=== PATIENT | male | born 1955 | race Two or more races ===

== ENCOUNTER 2023-08-16 14:59 | Inpatient (IN) | payer OTHER ==
[~2023-08-16] VITALS: Ht 172.7 cm; Wt 80.0 kg
[2023-08-16] MEDS ORDERED: CEPH-558 PO (15:16)
[2023-08-16] MEDS ORDERED: METF-1211 PO (15:16)
[2023-08-16] MEDS ORDERED: NITR-80 PO (15:16)
[2023-08-16] MEDS ORDERED: ATOR10TA PO (15:16)
[2023-08-16] MEDS ORDERED: PANT-31 PO (15:16)
[2023-08-16 15:41] LABS: BASOPHILS % (AUTO) 0.6 % (0.0-2.0); EOSINOPHILS % (AUTO) 2.1 % (1.0-6.0); HEMOGLOBIN 9.4 g/dL (13.5-17.5); LYMPHOCYTES # (AUTO) 1.2 K/uL (1.0-4.8); LYMPHOCYTES % (AUTO) 13.1 % (22.0-44.0); MEAN CORPUSCULAR HEMOGLOBIN 27.6 pg (26.0-34.0); MEAN CORPUSCULAR HGB CONC 32.3 G/dL (31.0-37.0); MEAN CORPUSCULAR VOLUME 86 fL (80-100); MONOCYTES # (AUTO) 0.9 K/uL (0.1-1.0); NEUTROPHILS # (AUTO) 7.2 K/uL (1.8-7.7); NEUTROPHILS % (AUTO) 75.2 % (40.0-70.0); PLATELET COUNT (AUTO) 648 K/uL (150-450); RED CELL DISTRIBUTION WIDTH 15.3 % (11.5-14.5); WHITE BLOOD COUNT (AUTO) 9.5 K/uL (4.5-11.0)
[2023-08-16 15:52] LABS: ANION GAP 10 mmol/L (8-16); CALCIUM, TOTAL 9.4 mg/dL (8.8-10.5); CARBON DIOXIDE 28 mmol/L (22-29); CHLORIDE 105 mmol/L (98-107); CREATININE 0.91 mg/dL (0.60-1.30); GLOMERULAR FILTR. RATE CALC > 60 mL/min (>60); GLUCOSE,RANDOM 95 mg/dL (70-110); POTASSIUM 3.9 mmol/L (3.5-5.1); SODIUM SERUM 143 mmol/L (136-145); UREA NITROGEN, BLOOD 18 mg/dL (7-18)
[2023-08-16 15:54] LABS: ERYTHROCYTE SEDIMENTATION RATE 68 MM/HR (0-20)
[2023-08-16 15:58] LABS: TROPONIN I-HIGH SENSITIVITY 4 ng/L (<76)
[2023-08-16 15:59] LABS: LACTIC ACID 1.2 mmol/L (0.4-2.0)
[2023-08-16 16:05] LABS: ALANINE AMINOTRANSFERASE 137 U/L (12-78); ALBUMIN 2.2 g/dL (3.4-5.0); ALKALINE PHOSPHATASE 171 U/L (46-116); ASPARTATE AMINOTRANSFERASE 124 U/L (15-37); B-TYPE NATRIURETIC PEPTIDE 60 pg/mL (0-100); BILIRUBIN,TOTAL 0.4 mg/dL (0.1-1.0); CREATINE KINASE, TOTAL ONLY 24 U/L (39-308); LIPASE 41 U/L (16-77); TOTAL PROTEIN, SERUM 7.6 g/dL (6.4-8.2)
[2023-08-16 16:26] LABS: COVID AG,FIA SOURCE NASAL SWAB
[2023-08-16 16:44] LABS: SARS-COV2 (COVID) ANTIGEN,FIA Negative (Negative)
[2023-08-16] MEDS ORDERED: ZOLPIDEM TARTRATE 5 MG TABLET PO PRN (17:15)
[2023-08-16] MEDS ORDERED: DEXTROSE 50%-WATER 25 GM/50 ML SYRINGE IVP PRN ×2 (17:15)
[2023-08-16] MEDS ORDERED: INSULIN LISPRO 100 UNITS/ML SQ PRN (17:15)
[2023-08-16] MEDS ORDERED: OxyCODONE HCL/ACETAMINOPHEN 5-325 MG TABLET PO PRN ×2 (17:15)
[2023-08-16] MEDS ORDERED: VANCOMYCIN 1GM/WATER(PEG/NADA) 200 ML IV ONE (17:15)
[2023-08-16] MEDS ORDERED: ONDANSETRON HCL 4 MG/2 ML VIAL IVP PRN (17:15)
[2023-08-16] MEDS: CefTRIAXone 1 GM/DEXTROSE 50 ML IV SCH (17:20)
[2023-08-16] MEDS ORDERED: IOHEXOL 350 MG/ML 100 ML VIAL ONE (17:54)
[2023-08-16] MEDS ORDERED: SODIUM CHLORIDE 0.9% 100 ML ONE (17:54)
[2023-08-16 18:11] LABS: GLUCOMETER DEV NAME(LOC) ER.6; GLUCOSE,POINT OF CARE 95 MG/DL (70-110)
[2023-08-16 18:54] LABS: APPEARANCE,URINE CLEAR (CLEAR); BILIRUBIN,URINE NEGATIVE (NEGATIVE); COLOR,URINE YELLOW (YELLOW); GLUCOSE, URINE (UA) NEGATIVE (NEGATIVE); KETONES,URINE NEGATIVE (NEGATIVE); LEUKOCYTE ESTERASE ,URINE NEGATIVE (NEGATIVE); NITRATE,URINE NEGATIVE (NEGATIVE); OCCULT BLOOD,URINE LARGE (NEGATIVE); PH,URINE 5.5 (5.0-8.0); PH,URINE DRUG SCREEN 5.5 (5.0-8.0); PROTEIN,URINE TRACE mg/dL (NEGATIVE); SPECIFIC GRAVITIY, URINE 1.026 (1.003-1.030); UROBILINOGEN,URINE <=1.0 mg/dL (<=1.0)
[2023-08-16 19:01] LABS: ALCOHOL, URINE DRUG SCREEN NEGATIVE (NEGATIVE); AMPHET/METH SCREEN,URINE NEGATIVE (NEGATIVE); BARBITURATE SCREEN, URINE NEGATIVE (NEGATIVE); BENZODIAZEPINES SCREEN,URINE NEGATIVE (NEGATIVE); CANNABINOID SCREEN,URINE NEGATIVE (NEGATIVE); COCAINE SCREEN,URINE NEGATIVE (NEGATIVE); METHADONE SCREEN, URINE NEGATIVE (NEGATIVE); OPIATE SCREEN,URINE NEGATIVE (NEGATIVE); PHENCYCLIDINE SCREEN,URINE NEGATIVE (NEGATIVE)
[2023-08-16 19:24] LABS: BACTERIA,URINE Rare /HPF (None Seen); WBC,URINE None Seen /HPF (0-5)
[2023-08-16 19:25] LABS: SQUAMOUS EPITHELIAL CELL,UR Few /LPF (None Seen)
[2023-08-16 19:40] VITALS: BP 116/66; PULSE 69; RESP 18; TEMP 98.8
[2023-08-16] MEDS: DOCUSATE SODIUM 100 MG CAPSULE PO SCH (20:39)
[2023-08-16] MEDS: ENOXAPARIN SODIUM 80 MG/0.8 ML PF SYRINGE SQ SCH (20:39)
[2023-08-16 22:21] LABS: GLUCOMETER DEV NAME(LOC) 4E.2; GLUCOSE,POINT OF CARE 96 MG/DL (70-110)
[2023-08-17 04:10] VITALS: BP 104/66; PULSE 65; RESP 18; TEMP 98.4
[2023-08-17] MEDS ORDERED: MORPHINE SULFATE 2 MG/ML SYRINGE IVP PRN (06:45)
[2023-08-17 07:21] LABS: GLUCOMETER DEV NAME(LOC) 6S.2; GLUCOSE,POINT OF CARE 92 MG/DL (70-110)
[2023-08-17 08:00] VITALS: BP 98/61; PULSE 61; RESP 19; TEMP 98.2
[2023-08-17 08:06] LABS: ANION GAP 9 mmol/L (8-16); CARBON DIOXIDE 27 mmol/L (22-29); CHLORIDE 104 mmol/L (98-107); CREATININE 0.78 mg/dL (0.60-1.30); GLOMERULAR FILTR. RATE CALC > 60 mL/min (>60); GLUCOSE,RANDOM 95 mg/dL (70-110); POTASSIUM 3.7 mmol/L (3.5-5.1); SODIUM SERUM 140 mmol/L (136-145); UREA NITROGEN, BLOOD 15 mg/dL (7-18)
[2023-08-17] MEDS ORDERED: SODIUM CHLORIDE 0.9% 500 ML IV ONE (08:27)
[2023-08-17] MEDS: VANCOMYCIN 1GM/WATER(PEG/NADA) 200 ML IV SCH ×2 (08:28→20:27)
[2023-08-17] MEDS: ENOXAPARIN SODIUM 80 MG/0.8 ML PF SYRINGE SQ SCH ×2 (08:36→20:31)
[2023-08-17] MEDS: FAMOTIDINE 20 MG TABLET PO SCH (09:00)
[2023-08-17] MEDS: DOCUSATE SODIUM 100 MG CAPSULE PO SCH ×2 (09:00→20:27)
[2023-08-17 11:27] LABS: GLUCOMETER DEV NAME(LOC) 6S.2; GLUCOSE,POINT OF CARE 107 MG/DL (70-110)
[2023-08-17] MEDS: CefTRIAXone 1 GM/DEXTROSE 50 ML IV SCH (18:03)
[2023-08-17 19:35] VITALS: BP 118/61; PULSE 64; RESP 18; TEMP 99
[2023-08-17 22:36] LABS: GLUCOMETER DEV NAME(LOC) 6S.2; GLUCOSE,POINT OF CARE 113 MG/DL (70-110)
[2023-08-17 22:36] LABS: GLUCOMETER DEV NAME(LOC) 6N.2B; GLUCOSE,POINT OF CARE 95 MG/DL (70-110)
[2023-08-18 05:01] VITALS: BP 114/66; PULSE 68; RESP 18; TEMP 98.8
[2023-08-18] MEDS: VANCOMYCIN 1GM/WATER(PEG/NADA) 200 ML IV SCH (07:38)
[2023-08-18 07:42] LABS: ANION GAP 11 mmol/L (8-16); CALCIUM, TOTAL 8.9 mg/dL (8.8-10.5); CARBON DIOXIDE 26 mmol/L (22-29); CHLORIDE 104 mmol/L (98-107); CREATININE 0.86 mg/dL (0.60-1.30); GLOMERULAR FILTR. RATE CALC > 60 mL/min (>60); GLUCOSE,RANDOM 93 mg/dL (70-110); POTASSIUM 3.8 mmol/L (3.5-5.1); SODIUM SERUM 141 mmol/L (136-145); UREA NITROGEN, BLOOD 12 mg/dL (7-18); VANCOMYCIN,RANDOM 12.3 mcg/mL (25.0-50.0)
[2023-08-18] MEDS: ENOXAPARIN SODIUM 80 MG/0.8 ML PF SYRINGE SQ SCH ×2 (07:44→20:56)
[2023-08-18 07:51] LABS: GLUCOMETER DEV NAME(LOC) 6S.2; GLUCOSE,POINT OF CARE 94 MG/DL (70-110)
[2023-08-18] MEDS: FAMOTIDINE 20 MG TABLET PO SCH (08:09)
[2023-08-18] MEDS: DOCUSATE SODIUM 100 MG CAPSULE PO SCH ×2 (08:09→20:56)
[2023-08-18 08:14] VITALS: BP 129/75; PULSE 61; RESP 19; TEMP 98.4
[2023-08-18] MEDS ORDERED: RINGERS SOLUTION,LACTATED 1,000 ML IV ONE ×3 (10:40→14:02)
[2023-08-18] MEDS ORDERED: ETHYL ALCOHOL 62% ANTISEPTIC NASAL SANITIZER 0.6 ML AMPUL NASAL ONE (10:45)
[2023-08-18] MEDS ORDERED: SODIUM CHLORIDE 0.9% 500 ML IV ONE (13:00)
[2023-08-18] MEDS ORDERED: HYDROmorphone HCL 2 MG/ML SYRINGE IVP PRN (14:00)
[2023-08-18] MEDS ORDERED: FentaNYL CITRATE PF 100 MCG/2 ML VIAL IVP PRN (14:00)
[2023-08-18] MEDS ORDERED: VANCOMYCIN HCL 1 GM/VIAL ONE (14:28)
[2023-08-18] MEDS ORDERED: ACETAMINOPHEN 325 MG TABLET PO PRN (14:30)
[2023-08-18 15:09] VITALS: BP 116/79; PULSE 66; RESP 19; TEMP 98.2
[2023-08-18] MEDS: CefTRIAXone 1 GM/DEXTROSE 50 ML IV SCH (17:14)
[2023-08-18] MEDS: INSULIN LISPRO 100 UNITS/ML SQ PRN ×2 (18:07→21:06)
[2023-08-18 18:16] LABS: GLUCOMETER DEV NAME(LOC) 4E.2; GLUCOSE,POINT OF CARE 142 MG/DL (70-110)
[2023-08-18] MEDS: CeFAZolin 1 GM/DEXTROSE 50 ML IV SCH (18:59)
[2023-08-18 19:25] VITALS: BP 111/84; PULSE 66; RESP 18; TEMP 98.3
[2023-08-18] MEDS: OXYGEN THERAPY IH SCH (20:00)
[2023-08-18] MEDS: VANCOMYCIN HCL 1.25 GM in DEXTROSE 5%-WATER 250 ML IV SCH (20:56)
[2023-08-18 22:21] LABS: GLUCOMETER DEV NAME(LOC) 6N.2B; GLUCOSE,POINT OF CARE 217 MG/DL (70-110)
[2023-08-19] MEDS: CeFAZolin 1 GM/DEXTROSE 50 ML IV SCH (02:06)
[2023-08-19] MEDS: HYDROCODONE/ACETAMINOPHEN 5-325 MG TABLET PO PRN (02:12)
[2023-08-19 04:55] VITALS: BP 106/68; PULSE 81; RESP 18; TEMP 98
[2023-08-19] MEDS ORDERED: ROCURONIUM BROMIDE 10 MG/ML 5 ML VIAL IVP ONE (06:37)
[2023-08-19] MEDS ORDERED: ONDANSETRON HCL 4 MG/2 ML VIAL IVP ONE (06:37)
[2023-08-19] MEDS ORDERED: SUGAMMADEX SODIUM 200 MG/2 ML VIAL IVP ONE (06:37)
[2023-08-19] MEDS ORDERED: METOCLOPRAMIDE HCL 5 MG/ML 2 ML VIAL IVP ONE (06:37)
[2023-08-19] MEDS ORDERED: CeFAZolin SODIUM 1 GM VIAL IVP ONE (06:37)
[2023-08-19] MEDS ORDERED: LIDOCAINE/PF 2% 5 ML VIAL IM ONE (06:37)
[2023-08-19] MEDS ORDERED: DEXAMETHASONE SOD PHOS 4 MG/ML VIAL IVP ONE (06:37)
[2023-08-19] MEDS ORDERED: PROPOFOL 1% 20 ML VIAL IVP ONE (06:37)
[2023-08-19 07:01] LABS: GLUCOMETER DEV NAME(LOC) 6N.2B; GLUCOSE,POINT OF CARE 113 MG/DL (70-110)
[2023-08-19 07:10] LABS: ANION GAP 9 mmol/L (8-16); CALCIUM, TOTAL 8.8 mg/dL (8.8-10.5); CARBON DIOXIDE 26 mmol/L (22-29); CHLORIDE 104 mmol/L (98-107); CREATININE 0.83 mg/dL (0.60-1.30); GLOMERULAR FILTR. RATE CALC > 60 mL/min (>60); GLUCOSE,RANDOM 125 mg/dL (70-110); POTASSIUM 4.1 mmol/L (3.5-5.1); SODIUM SERUM 139 mmol/L (136-145); UREA NITROGEN, BLOOD 18 mg/dL (7-18)
[2023-08-19] MEDS: OXYGEN THERAPY IH SCH ×2 (08:00→20:00)
[2023-08-19 08:22] VITALS: BP 112/70; PULSE 52; RESP 20; TEMP 98
[2023-08-19] MEDS: FAMOTIDINE 20 MG TABLET PO SCH (08:27)
[2023-08-19] MEDS: ENOXAPARIN SODIUM 80 MG/0.8 ML PF SYRINGE SQ SCH ×2 (08:27→20:47)
[2023-08-19] MEDS: VANCOMYCIN HCL 1.25 GM in DEXTROSE 5%-WATER 250 ML IV SCH ×2 (08:27→20:46)
[2023-08-19] MEDS: DOCUSATE SODIUM 100 MG CAPSULE PO SCH ×2 (08:28→20:47)
[2023-08-19] MEDS: INSULIN LISPRO 100 UNITS/ML SQ PRN ×2 (12:06→21:00)
[2023-08-19 15:27] VITALS: BP 118/74; PULSE 60; RESP 20; TEMP 98.4
[2023-08-19] MEDS: CefTRIAXone 1 GM/DEXTROSE 50 ML IV SCH (17:04)
[2023-08-19] MEDS ORDERED: SODIUM CHLORIDE 0.9% 500 ML IV ONE (17:08)
[2023-08-19 18:06] LABS: GLUCOMETER DEV NAME(LOC) 6N.2B; GLUCOSE,POINT OF CARE 144 MG/DL (70-110)
[2023-08-19 19:01] LABS: GLUCOMETER DEV NAME(LOC) 6S.2; GLUCOSE,POINT OF CARE 129 MG/DL (70-110)
[2023-08-19 20:34] VITALS: BP 113/67; PULSE 59; RESP 20; TEMP 98.7
[2023-08-19 23:46] LABS: GLUCOMETER DEV NAME(LOC) 6S.2; GLUCOSE,POINT OF CARE 146 MG/DL (70-110)
[2023-08-20 04:16] VITALS: BP 116/65; PULSE 60; RESP 18; TEMP 97.9
[2023-08-20 07:03] LABS: ANION GAP 9 mmol/L (8-16); CALCIUM, TOTAL 8.8 mg/dL (8.8-10.5); CARBON DIOXIDE 27 mmol/L (22-29); CHLORIDE 104 mmol/L (98-107); GLOMERULAR FILTR. RATE CALC > 60 mL/min (>60); GLUCOSE,RANDOM 97 mg/dL (70-110); POTASSIUM 3.7 mmol/L (3.5-5.1); SODIUM SERUM 140 mmol/L (136-145); UREA NITROGEN, BLOOD 15 mg/dL (7-18)
[2023-08-20] MEDS: OXYGEN THERAPY IH SCH ×2 (08:00→20:44)
[2023-08-20] MEDS: DOCUSATE SODIUM 100 MG CAPSULE PO SCH ×2 (08:09→20:43)
[2023-08-20] MEDS: ENOXAPARIN SODIUM 80 MG/0.8 ML PF SYRINGE SQ SCH ×2 (08:09→20:43)
[2023-08-20] MEDS: VANCOMYCIN HCL 1.25 GM in DEXTROSE 5%-WATER 250 ML IV SCH ×2 (08:09→20:44)
[2023-08-20] MEDS: FAMOTIDINE 20 MG TABLET PO SCH (08:09)
[2023-08-20 08:46] LABS: GLUCOMETER DEV NAME(LOC) 4E.2; GLUCOSE,POINT OF CARE 92 MG/DL (70-110)
[2023-08-20] MEDS: MORPHINE SULFATE 2 MG/ML SYRINGE IVP PRN ×3 (09:43→18:10)
[2023-08-20 09:49] VITALS: BP 105/66; PULSE 62; RESP 18; TEMP 99.1
[2023-08-20] MEDS: INSULIN LISPRO 100 UNITS/ML SQ PRN ×2 (12:20→21:36)
[2023-08-20 14:16] LABS: GLUCOMETER DEV NAME(LOC) 6N.2B; GLUCOSE,POINT OF CARE 204 MG/DL (70-110)
[2023-08-20] MEDS: CefTRIAXone 1 GM/DEXTROSE 50 ML IV SCH (17:03)
[2023-08-20 18:16] LABS: GLUCOMETER DEV NAME(LOC) 4E.2; GLUCOSE,POINT OF CARE 99 MG/DL (70-110)
[2023-08-20 20:00] VITALS: BP 108/71; PULSE 78; RESP 18; TEMP 98.8
[2023-08-20] MEDS: HYDROCODONE/ACETAMINOPHEN 5-325 MG TABLET PO PRN (21:34)
[2023-08-21] MEDS: MORPHINE SULFATE 2 MG/ML SYRINGE IVP PRN ×3 (05:12→17:07)
[2023-08-21 05:20] VITALS: BP 106/70; PULSE 82; RESP 18; TEMP 99.7
[2023-08-21 06:21] LABS: GLUCOMETER DEV NAME(LOC) 6S.2; GLUCOSE,POINT OF CARE 142 MG/DL (70-110)
[2023-08-21 07:16] LABS: ANION GAP 10 mmol/L (8-16); CALCIUM, TOTAL 8.4 mg/dL (8.8-10.5); CARBON DIOXIDE 27 mmol/L (22-29); CHLORIDE 98 mmol/L (98-107); CREATININE 0.91 mg/dL (0.60-1.30); GLOMERULAR FILTR. RATE CALC > 60 mL/min (>60); GLUCOSE,RANDOM 114 mg/dL (70-110); POTASSIUM 3.8 mmol/L (3.5-5.1); SODIUM SERUM 135 mmol/L (136-145); UREA NITROGEN, BLOOD 13 mg/dL (7-18); VANCOMYCIN,RANDOM 21.3 mcg/mL (25.0-50.0)
[2023-08-21 07:41] LABS: GLUCOMETER DEV NAME(LOC) 6N.2B; GLUCOSE,POINT OF CARE 130 MG/DL (70-110)
[2023-08-21 08:00] VITALS: BP 105/62; PULSE 76; RESP 18; TEMP 99.3
[2023-08-21] MEDS: OXYGEN THERAPY IH SCH (08:00)
[2023-08-21] MEDS: VANCOMYCIN HCL 1.25 GM in DEXTROSE 5%-WATER 250 ML IV SCH ×2 (08:12→19:56)
[2023-08-21] MEDS: DOCUSATE SODIUM 100 MG CAPSULE PO SCH ×2 (08:12→21:38)
[2023-08-21] MEDS: FAMOTIDINE 20 MG TABLET PO SCH (08:12)
[2023-08-21] MEDS: ENOXAPARIN SODIUM 80 MG/0.8 ML PF SYRINGE SQ SCH ×2 (08:12→21:38)
[2023-08-21] MEDS: ACETAMINOPHEN 325 MG TABLET PO PRN ×2 (09:47→19:53)
[2023-08-21 13:01] LABS: GLUCOMETER DEV NAME(LOC) 4E.2; GLUCOSE,POINT OF CARE 135 MG/DL (70-110)
[2023-08-21 13:37] LABS: BASOPHILS % (AUTO) 1.8 % (0.0-2.0); EOSINOPHILS % (AUTO) 0.4 % (1.0-6.0); HEMATOCRIT 27.7 % (41-53); HEMOGLOBIN 9.2 g/dL (13.5-17.5); LYMPHOCYTES # (AUTO) 1.4 K/uL (1.0-4.8); LYMPHOCYTES % (AUTO) 13.1 % (22.0-44.0); MEAN CORPUSCULAR HEMOGLOBIN 28.4 pg (26.0-34.0); MEAN CORPUSCULAR VOLUME 86 fL (80-100); MONOCYTES % (AUTO) 9.2 % (2.0-9.0); NEUTROPHILS # (AUTO) 8.2 K/uL (1.8-7.7); NEUTROPHILS % (AUTO) 75.5 % (40.0-70.0); PLATELET COUNT (AUTO) 587 K/uL (150-450); RED BLOOD CELL COUNT(AUTO) 3.22 MIL/uL (4.50-5.90); RED CELL DISTRIBUTION WIDTH 15.4 % (11.5-14.5); WHITE BLOOD COUNT (AUTO) 10.9 K/uL (4.5-11.0)
[2023-08-21 17:00] VITALS: BP 123/76; PULSE 83; RESP 20; TEMP 99.4
[2023-08-21] MEDS: CefTRIAXone 1 GM/DEXTROSE 50 ML IV SCH (17:07)
[2023-08-21 18:56] LABS: GLUCOMETER DEV NAME(LOC) 6N.2B; GLUCOSE,POINT OF CARE 109 MG/DL (70-110)
[2023-08-21 19:43] VITALS: BP 111/67; PULSE 96; RESP 20; TEMP 101
[2023-08-21 21:54] LABS: APPEARANCE,URINE CLEAR (CLEAR); BILIRUBIN,URINE NEGATIVE (NEGATIVE); COLOR,URINE LIGHT YELLOW (YELLOW); GLUCOSE, URINE (UA) NEGATIVE (NEGATIVE); KETONES,URINE NEGATIVE (NEGATIVE); LEUKOCYTE ESTERASE ,URINE NEGATIVE (NEGATIVE); NITRATE,URINE NEGATIVE (NEGATIVE); OCCULT BLOOD,URINE NEGATIVE (NEGATIVE); PH,URINE 6.5 (5.0-8.0); PROTEIN,URINE NEGATIVE (NEGATIVE); SPECIFIC GRAVITIY, URINE 1.017 (1.003-1.030); UROBILINOGEN,URINE <=1.0 mg/dL (<=1.0)
[2023-08-21 22:01] LABS: GLUCOMETER DEV NAME(LOC) 4E.2; GLUCOSE,POINT OF CARE 136 MG/DL (70-110)
[2023-08-22] VITALS (9 sets, daily range): BP systolic 89–127; BP diastolic 56–73; PULSE 67–97; RESP 18–19; TEMP 98.7–103.1
[2023-08-22] MEDS: MORPHINE SULFATE 2 MG/ML SYRINGE IVP PRN ×3 (05:26→13:21)
[2023-08-22 07:50] LABS: ANION GAP 8 mmol/L (8-16); CALCIUM, TOTAL 8.8 mg/dL (8.8-10.5); CARBON DIOXIDE 28 mmol/L (22-29); CHLORIDE 100 mmol/L (98-107); CREATININE 1.06 mg/dL (0.60-1.30); GLOMERULAR FILTR. RATE CALC > 60 mL/min (>60); GLUCOSE,RANDOM 137 mg/dL (70-110); POTASSIUM 3.9 mmol/L (3.5-5.1); SODIUM SERUM 136 mmol/L (136-145); UREA NITROGEN, BLOOD 12 mg/dL (7-18)
[2023-08-22] MEDS: OXYGEN THERAPY IH SCH ×2 (08:00→20:00)
[2023-08-22] MEDS: VANCOMYCIN HCL 1.25 GM in DEXTROSE 5%-WATER 250 ML IV SCH ×2 (08:13→20:45)
[2023-08-22] MEDS: DOCUSATE SODIUM 100 MG CAPSULE PO SCH ×2 (08:22→20:45)
[2023-08-22] MEDS: FAMOTIDINE 20 MG TABLET PO SCH (08:22)
[2023-08-22] MEDS: ENOXAPARIN SODIUM 80 MG/0.8 ML PF SYRINGE SQ SCH ×2 (08:22→20:45)
[2023-08-22] MEDS: ACETAMINOPHEN 325 MG TABLET PO PRN (08:59)
[2023-08-22] MEDS ORDERED: IBUPROFEN 800 MG TABLET PO ONE (10:15)
[2023-08-22 11:16] LABS: GLUCOMETER DEV NAME(LOC) 6N.2B; GLUCOSE,POINT OF CARE 135 MG/DL (70-110)
[2023-08-22] MEDS: INSULIN LISPRO 100 UNITS/ML SQ PRN (11:36)
[2023-08-22 11:46] LABS: GLUCOMETER DEV NAME(LOC) 6N.2B; GLUCOSE,POINT OF CARE 163 MG/DL (70-110)
[2023-08-22] MEDS ORDERED: SODIUM CHLORIDE 0.9% 1,000 ML ONE (17:25)
[2023-08-22 17:31] LABS: GLUCOMETER DEV NAME(LOC) 6S.2; GLUCOSE,POINT OF CARE 123 MG/DL (70-110)
[2023-08-22] MEDS: CefTRIAXone 1 GM/DEXTROSE 50 ML IV SCH (17:35)
[2023-08-22 18:43] LABS: BASOPHILS % (AUTO) 0.4 % (0.0-2.0); EOSINOPHILS % (AUTO) 0.1 % (1.0-6.0); HEMATOCRIT 27.7 % (41-53); HEMOGLOBIN 9.1 g/dL (13.5-17.5); LYMPHOCYTES # (AUTO) 1.5 K/uL (1.0-4.8); LYMPHOCYTES % (AUTO) 10.6 % (22.0-44.0); MEAN CORPUSCULAR HGB CONC 32.7 G/dL (31.0-37.0); MEAN CORPUSCULAR VOLUME 86 fL (80-100); MONOCYTES # (AUTO) 1.2 K/uL (0.1-1.0); MONOCYTES % (AUTO) 8.7 % (2.0-9.0); NEUTROPHILS # (AUTO) 11.2 K/uL (1.8-7.7); NEUTROPHILS % (AUTO) 80.2 % (40.0-70.0); PLATELET COUNT (AUTO) 495 K/uL (150-450); RED BLOOD CELL COUNT(AUTO) 3.24 MIL/uL (4.50-5.90); RED CELL DISTRIBUTION WIDTH 15.2 % (11.5-14.5)
[2023-08-22 19:52] LABS: COVID AG,FIA SOURCE NASAL SWAB
[2023-08-22 19:59] LABS: APPEARANCE,URINE HAZY (CLEAR); BILIRUBIN,URINE NEGATIVE (NEGATIVE); COLOR,URINE YELLOW (YELLOW); GLUCOSE, URINE (UA) NEGATIVE (NEGATIVE); KETONES,URINE NEGATIVE (NEGATIVE); LEUKOCYTE ESTERASE ,URINE NEGATIVE (NEGATIVE); NITRATE,URINE NEGATIVE (NEGATIVE); OCCULT BLOOD,URINE NEGATIVE (NEGATIVE); PH,URINE 5.5 (5.0-8.0); PROTEIN,URINE TRACE mg/dL (NEGATIVE); SPECIFIC GRAVITIY, URINE 1.017 (1.003-1.030); UROBILINOGEN,URINE <=1.0 mg/dL (<=1.0)
[2023-08-22 20:23] LABS: SARS-COV2 (COVID) ANTIGEN,FIA Negative (Negative)
[2023-08-22] MEDS: HYDROCODONE/ACETAMINOPHEN 5-325 MG TABLET PO PRN (22:04)
[2023-08-23 01:51] LABS: GLUCOMETER DEV NAME(LOC) 6S.2; GLUCOSE,POINT OF CARE 130 MG/DL (70-110)
[2023-08-23 05:41] VITALS: BP 124/67; PULSE 90; RESP 19; TEMP 103
[2023-08-23] MEDS: ACETAMINOPHEN 325 MG TABLET PO PRN ×2 (05:44→15:54)
[2023-08-23 06:34] VITALS: TEMP 102.1
[2023-08-23 06:42] LABS: BASOPHILS % (AUTO) 0.4 % (0.0-2.0); EOSINOPHILS % (AUTO) 0.1 % (1.0-6.0); HEMATOCRIT 25.5 % (41-53); HEMOGLOBIN 8.8 g/dL (13.5-17.5); LYMPHOCYTES # (AUTO) 1.3 K/uL (1.0-4.8); LYMPHOCYTES % (AUTO) 8.6 % (22.0-44.0); MEAN CORPUSCULAR HEMOGLOBIN 29.2 pg (26.0-34.0); MEAN CORPUSCULAR HGB CONC 34.6 G/dL (31.0-37.0); MEAN CORPUSCULAR VOLUME 84 fL (80-100); MONOCYTES # (AUTO) 1.2 K/uL (0.1-1.0); MONOCYTES % (AUTO) 8.2 % (2.0-9.0); NEUTROPHILS # (AUTO) 12.2 K/uL (1.8-7.7); NEUTROPHILS % (AUTO) 82.7 % (40.0-70.0); PLATELET COUNT (AUTO) 512 K/uL (150-450); RED BLOOD CELL COUNT(AUTO) 3.03 MIL/uL (4.50-5.90); RED CELL DISTRIBUTION WIDTH 15.1 % (11.5-14.5); WHITE BLOOD COUNT (AUTO) 14.7 K/uL (4.5-11.0)
[2023-08-23 07:09] LABS: CARBON DIOXIDE 26 mmol/L (22-29); CHLORIDE 98 mmol/L (98-107); SODIUM SERUM 135 mmol/L (136-145)
[2023-08-23 07:10] LABS: ANION GAP 11 mmol/L (8-16); CALCIUM, TOTAL 8.8 mg/dL (8.8-10.5); CREATININE 1.07 mg/dL (0.60-1.30); GLOMERULAR FILTR. RATE CALC > 60 mL/min (>60); GLUCOSE,RANDOM 124 mg/dL (70-110); UREA NITROGEN, BLOOD 19 mg/dL (7-18); VANCOMYCIN,RANDOM 22.6 mcg/mL (25.0-50.0)
[2023-08-23 07:20] LABS: URIC ACID 4.9 mg/dL (2.6-7.2)
[2023-08-23] MEDS: DOCUSATE SODIUM 100 MG CAPSULE PO SCH ×2 (08:18→20:53)
[2023-08-23] MEDS: ENOXAPARIN SODIUM 80 MG/0.8 ML PF SYRINGE SQ SCH ×2 (08:18→21:04)
[2023-08-23] MEDS: FAMOTIDINE 20 MG TABLET PO SCH (08:18)
[2023-08-23] MEDS: VANCOMYCIN HCL 1.25 GM in DEXTROSE 5%-WATER 250 ML IV SCH (08:25)
[2023-08-23 08:48] VITALS: BP 101/58; PULSE 83; RESP 19; TEMP 99.7
[2023-08-23] MEDS: INSULIN LISPRO 100 UNITS/ML SQ PRN ×2 (11:27→20:54)
[2023-08-23 12:11] LABS: GLUCOMETER DEV NAME(LOC) 6N.2B; GLUCOSE,POINT OF CARE 123 MG/DL (70-110)
[2023-08-23] MEDS ORDERED: SODIUM CHLORIDE 0.9% 1,000 ML IV ONE (12:30)
[2023-08-23] MEDS ORDERED: SODIUM CHLORIDE 0.9% 100 ML ONE ×2 (16:48→17:27)
[2023-08-23] MEDS ORDERED: IOHEXOL 350 MG/ML 100 ML VIAL ONE ×2 (16:48→17:26)
[2023-08-23] MEDS: CefTRIAXone 1 GM/DEXTROSE 50 ML IV SCH (17:05)
[2023-08-23 17:16] VITALS: BP 116/64; PULSE 86; RESP 19; TEMP 98.9
[2023-08-23 19:31] LABS: GLUCOMETER DEV NAME(LOC) 6S.2; GLUCOSE,POINT OF CARE 199 MG/DL (70-110)
[2023-08-23 19:31] LABS: GLUCOMETER DEV NAME(LOC) 6N.2B; GLUCOSE,POINT OF CARE 132 MG/DL (70-110)
[2023-08-23] MEDS: HYDROCODONE/ACETAMINOPHEN 5-325 MG TABLET PO PRN (20:53)
[2023-08-23] MEDS: VANCOMYCIN 1GM/WATER(PEG/NADA) 200 ML IV SCH (21:00)
[2023-08-23] MEDS: OXYGEN THERAPY IH SCH (21:01)
[2023-08-23 21:10] VITALS: BP 116/68; PULSE 79; RESP 19; TEMP 99.3
[2023-08-23 23:57] LABS: GLUCOMETER DEV NAME(LOC) 6S.2; GLUCOSE,POINT OF CARE 144 MG/DL (70-110)
[2023-08-24] MEDS: MORPHINE SULFATE 2 MG/ML SYRINGE IVP PRN (03:32)
[2023-08-24] MEDS: HYDROCODONE/ACETAMINOPHEN 5-325 MG TABLET PO PRN ×3 (05:12→20:42)
[2023-08-24 05:44] VITALS: BP 95/54; PULSE 92; RESP 19; TEMP 99.7
[2023-08-24 06:59] LABS: ANION GAP 11 mmol/L (8-16); CALCIUM, TOTAL 8.8 mg/dL (8.8-10.5); CARBON DIOXIDE 27 mmol/L (22-29); CHLORIDE 100 mmol/L (98-107); CREATININE 1.01 mg/dL (0.60-1.30); GLOMERULAR FILTR. RATE CALC > 60 mL/min (>60); GLUCOSE,RANDOM 121 mg/dL (70-110); SODIUM SERUM 138 mmol/L (136-145); UREA NITROGEN, BLOOD 16 mg/dL (7-18)
[2023-08-24] MEDS: VANCOMYCIN 1GM/WATER(PEG/NADA) 200 ML IV SCH ×2 (07:54→20:41)
[2023-08-24] MEDS: ENOXAPARIN SODIUM 80 MG/0.8 ML PF SYRINGE SQ SCH ×2 (07:54→20:42)
[2023-08-24] MEDS: FAMOTIDINE 20 MG TABLET PO SCH (07:54)
[2023-08-24] MEDS: DOCUSATE SODIUM 100 MG CAPSULE PO SCH ×2 (07:54→20:42)
[2023-08-24 07:56] LABS: GLUCOMETER DEV NAME(LOC) 4E.2; GLUCOSE,POINT OF CARE 120 MG/DL (70-110)
[2023-08-24] MEDS ORDERED: GADOTERATE MEGLUMINE 10 MMOL/20 ML VIAL IVP ONE (09:01)
[2023-08-24] MEDS ORDERED: SODIUM CHLORIDE 0.9% 1,000 ML IV ONE (10:15)
[2023-08-24 11:13] VITALS: BP 103/63; PULSE 70; RESP 19; TEMP 99.8
[2023-08-24 11:46] LABS: GLUCOMETER DEV NAME(LOC) 4E.2; GLUCOSE,POINT OF CARE 133 MG/DL (70-110)
[2023-08-24 17:35] VITALS: BP 109/58; PULSE 84; RESP 20; TEMP 100.5
[2023-08-24] MEDS: CefTRIAXone 1 GM/DEXTROSE 50 ML IV SCH (17:35)
[2023-08-24] MEDS: ACETAMINOPHEN 325 MG TABLET PO PRN (17:36)
[2023-08-24] MEDS: MAGNESIUM HYDROXIDE SUSPENSION 30 ML UDCUP PO PRN (17:36)
[2023-08-24 20:17] LABS: GLUCOMETER DEV NAME(LOC) 6N.2B; GLUCOSE,POINT OF CARE 128 MG/DL (70-110)
[2023-08-24 20:36] VITALS: BP 123/71; PULSE 84; RESP 19; TEMP 100.2
[2023-08-24] MEDS: INSULIN LISPRO 100 UNITS/ML SQ PRN (20:48)
[2023-08-24] MEDS: OXYGEN THERAPY IH SCH (20:49)
[2023-08-25] MEDS: ACETAMINOPHEN 325 MG TABLET PO PRN ×2 (00:29→17:08)
[2023-08-25 00:51] LABS: GLUCOMETER DEV NAME(LOC) 4E.2; GLUCOSE,POINT OF CARE 154 MG/DL (70-110)
[2023-08-25 04:29] VITALS: BP 115/59; PULSE 76; RESP 20; TEMP 99
[2023-08-25 06:11] LABS: GLUCOMETER DEV NAME(LOC) 6N.2B; GLUCOSE,POINT OF CARE 119 MG/DL (70-110)
[2023-08-25 06:55] LABS: BASOPHILS % (AUTO) 0.4 % (0.0-2.0); EOSINOPHILS % (AUTO) 0.3 % (1.0-6.0); HEMATOCRIT 23.9 % (41-53); HEMOGLOBIN 8.1 g/dL (13.5-17.5); LYMPHOCYTES # (AUTO) 1.2 K/uL (1.0-4.8); LYMPHOCYTES % (AUTO) 12.3 % (22.0-44.0); MEAN CORPUSCULAR HEMOGLOBIN 28.5 pg (26.0-34.0); MEAN CORPUSCULAR HGB CONC 33.8 G/dL (31.0-37.0); MEAN CORPUSCULAR VOLUME 85 fL (80-100); MONOCYTES # (AUTO) 1.1 K/uL (0.1-1.0); MONOCYTES % (AUTO) 11.4 % (2.0-9.0); NEUTROPHILS # (AUTO) 7.4 K/uL (1.8-7.7); NEUTROPHILS % (AUTO) 75.6 % (40.0-70.0); PLATELET COUNT (AUTO) 424 K/uL (150-450); RED BLOOD CELL COUNT(AUTO) 2.83 MIL/uL (4.50-5.90); RED CELL DISTRIBUTION WIDTH 15.1 % (11.5-14.5); WHITE BLOOD COUNT (AUTO) 9.7 K/uL (4.5-11.0)
[2023-08-25 07:13] LABS: ANION GAP 11 mmol/L (8-16); CARBON DIOXIDE 26 mmol/L (22-29); CHLORIDE 99 mmol/L (98-107); GLUCOSE,RANDOM 109 mg/dL (70-110); POTASSIUM 4.1 mmol/L (3.5-5.1); SODIUM SERUM 136 mmol/L (136-145); UREA NITROGEN, BLOOD 16 mg/dL (7-18)
[2023-08-25 07:57] LABS: C-REACTIVE PROTEIN QUANT 24.06 mg/dL (0.00-0.30)
[2023-08-25] MEDS: OXYGEN THERAPY IH SCH ×2 (08:00→20:08)
[2023-08-25 08:01] LABS: CALCIUM, TOTAL 8.8 mg/dL (8.8-10.5); CREATININE 0.87 mg/dL (0.60-1.30); GLOMERULAR FILTR. RATE CALC > 60 mL/min (>60)
[2023-08-25 08:05] VITALS: BP 118/62; PULSE 78; RESP 20; TEMP 98.8
[2023-08-25] MEDS: VANCOMYCIN 1GM/WATER(PEG/NADA) 200 ML IV SCH ×2 (08:15→20:07)
[2023-08-25] MEDS: ENOXAPARIN SODIUM 80 MG/0.8 ML PF SYRINGE SQ SCH ×2 (08:25→20:07)
[2023-08-25] MEDS: DOCUSATE SODIUM 100 MG CAPSULE PO SCH ×2 (08:25→20:07)
[2023-08-25] MEDS: FAMOTIDINE 20 MG TABLET PO SCH (08:25)
[2023-08-25] MEDS: MORPHINE SULFATE 2 MG/ML SYRINGE IVP PRN (08:28)
[2023-08-25] MEDS: HYDROCODONE/ACETAMINOPHEN 5-325 MG TABLET PO PRN ×2 (11:25→20:10)
[2023-08-25 12:06] LABS: GLUCOMETER DEV NAME(LOC) 6N.2B; GLUCOSE,POINT OF CARE 141 MG/DL (70-110)
[2023-08-25] MEDS: CefTRIAXone 1 GM/DEXTROSE 50 ML IV SCH (16:39)
[2023-08-25 17:05] VITALS: BP 112/65; PULSE 75; RESP 19; TEMP 99.7
[2023-08-25 17:47] LABS: GLUCOMETER DEV NAME(LOC) 6N.2B; GLUCOSE,POINT OF CARE 112 MG/DL (70-110)
[2023-08-25] MEDS: INSULIN LISPRO 100 UNITS/ML SQ PRN (20:10)
[2023-08-25 20:38] VITALS: BP 111/69; PULSE 71; RESP 18; TEMP 99.5
[2023-08-25 22:37] LABS: GLUCOMETER DEV NAME(LOC) 4E.2; GLUCOSE,POINT OF CARE 149 MG/DL (70-110)
[2023-08-26 04:06] VITALS: BP 98/62; PULSE 73; RESP 18; TEMP 98.4
[2023-08-26] MEDS: MORPHINE SULFATE 2 MG/ML SYRINGE IVP PRN ×2 (04:10→20:25)
[2023-08-26 07:40] LABS: ANION GAP 11 mmol/L (8-16); CALCIUM, TOTAL 8.7 mg/dL (8.8-10.5); CARBON DIOXIDE 27 mmol/L (22-29); CHLORIDE 98 mmol/L (98-107); CREATININE 0.93 mg/dL (0.60-1.30); GLOMERULAR FILTR. RATE CALC > 60 mL/min (>60); GLUCOSE,RANDOM 115 mg/dL (70-110); POTASSIUM 3.8 mmol/L (3.5-5.1); SODIUM SERUM 136 mmol/L (136-145); UREA NITROGEN, BLOOD 17 mg/dL (7-18); VANCOMYCIN,RANDOM 14.8 mcg/mL (25.0-50.0)
[2023-08-26 07:50] LABS: GLUCOMETER DEV NAME(LOC) 6S.2; GLUCOSE,POINT OF CARE 122 MG/DL (70-110)
[2023-08-26] MEDS: OXYGEN THERAPY IH SCH (08:00)
[2023-08-26] MEDS: ENOXAPARIN SODIUM 80 MG/0.8 ML PF SYRINGE SQ SCH ×2 (08:09→20:21)
[2023-08-26] MEDS: DOCUSATE SODIUM 100 MG CAPSULE PO SCH ×2 (08:09→20:21)
[2023-08-26] MEDS: VANCOMYCIN 1GM/WATER(PEG/NADA) 200 ML IV SCH ×2 (08:09→20:21)
[2023-08-26] MEDS: FAMOTIDINE 20 MG TABLET PO SCH (08:10)
[2023-08-26] MEDS: HYDROCODONE/ACETAMINOPHEN 5-325 MG TABLET PO PRN ×2 (08:10→17:30)
[2023-08-26 08:40] VITALS: BP 116/67; PULSE 77; RESP 18; TEMP 99
[2023-08-26] MEDS ORDERED: INDOMETHACIN 25 MG CAPSULE PO PRN (10:30)
[2023-08-26 10:49] LABS: C-REACTIVE PROTEIN QUANT 24.33 mg/dL (0.00-0.30)
[2023-08-26 12:11] LABS: GLUCOMETER DEV NAME(LOC) 4E.2; GLUCOSE,POINT OF CARE 131 MG/DL (70-110)
[2023-08-26] MEDS: MAGNESIUM HYDROXIDE SUSPENSION 30 ML UDCUP PO PRN (14:20)
[2023-08-26] MEDS: CefTRIAXone 1 GM/DEXTROSE 50 ML IV SCH (17:28)
[2023-08-26] MEDS: INSULIN LISPRO 100 UNITS/ML SQ PRN (20:40)
[2023-08-26 21:30] VITALS: BP 95/59; PULSE 66; RESP 19; TEMP 98.6
[2023-08-27] MEDS: HYDROCODONE/ACETAMINOPHEN 5-325 MG TABLET PO PRN ×3 (00:11→20:33)
[2023-08-27 02:06] LABS: GLUCOMETER DEV NAME(LOC) 4E.2; GLUCOSE,POINT OF CARE 112 MG/DL (70-110)
[2023-08-27 04:35] VITALS: BP 109/64; PULSE 90; RESP 18; TEMP 100.5
[2023-08-27 06:08] VITALS: TEMP 98.5
[2023-08-27 07:09] LABS: CALCIUM, TOTAL 8.9 mg/dL (8.8-10.5); CARBON DIOXIDE 26 mmol/L (22-29); CREATININE 0.89 mg/dL (0.60-1.30); GLOMERULAR FILTR. RATE CALC > 60 mL/min (>60); GLUCOSE,RANDOM 119 mg/dL (70-110); UREA NITROGEN, BLOOD 19 mg/dL (7-18)
[2023-08-27 07:21] LABS: GLUCOMETER DEV NAME(LOC) 6N.2B; GLUCOSE,POINT OF CARE 110 MG/DL (70-110)
[2023-08-27 07:21] LABS: GLUCOMETER DEV NAME(LOC) 6N.2B; GLUCOSE,POINT OF CARE 191 MG/DL (70-110)
[2023-08-27 07:59] LABS: ANION GAP 10 mmol/L (8-16); CHLORIDE 98 mmol/L (98-107); SODIUM SERUM 134 mmol/L (136-145)
[2023-08-27] MEDS: OXYGEN THERAPY IH SCH (08:00)
[2023-08-27] MEDS: FAMOTIDINE 20 MG TABLET PO SCH (08:18)
[2023-08-27] MEDS: VANCOMYCIN 1GM/WATER(PEG/NADA) 200 ML IV SCH ×2 (08:18→20:15)
[2023-08-27] MEDS: DOCUSATE SODIUM 100 MG CAPSULE PO SCH ×2 (08:18→20:22)
[2023-08-27] MEDS: ENOXAPARIN SODIUM 80 MG/0.8 ML PF SYRINGE SQ SCH ×2 (08:19→20:22)
[2023-08-27 08:34] VITALS: BP 114/73; PULSE 72; RESP 20; TEMP 99.6
[2023-08-27] MEDS: MORPHINE SULFATE 2 MG/ML SYRINGE IVP PRN ×2 (08:47→17:27)
[2023-08-27] MEDS ORDERED: BISACODYL 10 MG RECTAL RECTAL SUPPOSITORY PR PRN (09:30)
[2023-08-27 12:47] LABS: BASOPHILS % (AUTO) 0.7 % (0.0-2.0); EOSINOPHILS % (AUTO) 0.4 % (1.0-6.0); HEMATOCRIT 23.6 % (41-53); HEMOGLOBIN 7.8 g/dL (13.5-17.5); LYMPHOCYTES % (AUTO) 10.7 % (22.0-44.0); MEAN CORPUSCULAR HEMOGLOBIN 27.8 pg (26.0-34.0); MEAN CORPUSCULAR HGB CONC 32.9 G/dL (31.0-37.0); MEAN CORPUSCULAR VOLUME 84 fL (80-100); MONOCYTES # (AUTO) 0.8 K/uL (0.1-1.0); MONOCYTES % (AUTO) 9.4 % (2.0-9.0); NEUTROPHILS # (AUTO) 7.1 K/uL (1.8-7.7); NEUTROPHILS % (AUTO) 78.8 % (40.0-70.0); PLATELET COUNT (AUTO) 397 K/uL (150-450); RED CELL DISTRIBUTION WIDTH 15.7 % (11.5-14.5)
[2023-08-27 13:21] LABS: GLUCOMETER DEV NAME(LOC) 6N.2B; GLUCOSE,POINT OF CARE 146 MG/DL (70-110)
[2023-08-27 13:47] LABS: SPECIMENTYPE,BODY FLUID SYNOVIAL
[2023-08-27] MEDS: INDOMETHACIN 25 MG CAPSULE PO PRN (14:11)
[2023-08-27 14:54] LABS: APPEARANCE,UNSPUN,BODY FLUID SLIGHTLY CLOUDY (CLEAR)
[2023-08-27 14:55] LABS: APPEARANCE,SPUN,BODY FLUID HAZY (CLEAR); COLOR,BODY FLUID LT YELLOW (LT YELLOW); TOTAL VOLUME,BODY FLUID 4 mL
[2023-08-27 15:01] LABS: WBC, BODY FLUID 31 /cu. mm.
[2023-08-27 15:02] LABS: BASOPHILS,BODY FLUID 0 %; EOSINOPHILS,BF (ANAL) 0 %; LYMPHOCYTES,BODY FLUID 38 %; MONOCYTES,BODY FLUID 2 %; NEUTROPHILS,BODY FLUID 60 %
[2023-08-27 15:21] LABS: CRYSTALS, SYNOVIAL FLUID Ca Phyrophos - Few (None Seen)
[2023-08-27 15:41] VITALS: BP 110/74; PULSE 74; RESP 20; TEMP 98.9
[2023-08-27] MEDS: CefTRIAXone 1 GM/DEXTROSE 50 ML IV SCH (16:55)
[2023-08-27 18:16] LABS: GLUCOMETER DEV NAME(LOC) 4E.2; GLUCOSE,POINT OF CARE 134 MG/DL (70-110)
[2023-08-27 20:14] VITALS: BP 109/58; PULSE 72; RESP 18; TEMP 98.3
[2023-08-27] MEDS: INSULIN LISPRO 100 UNITS/ML SQ PRN (20:38)
[2023-08-27 23:11] LABS: GLUCOMETER DEV NAME(LOC) 6S.2; GLUCOSE,POINT OF CARE 146 MG/DL (70-110)
[2023-08-28 03:50] VITALS: BP 96/57; PULSE 64; RESP 18; TEMP 98.9
[2023-08-28] MEDS ORDERED: SODIUM CHLORIDE 0.9% 500 ML IV ONE (05:02)
[2023-08-28] MEDS: HYDROCODONE/ACETAMINOPHEN 5-325 MG TABLET PO PRN ×2 (05:13→20:13)
[2023-08-28 06:26] LABS: GLUCOMETER DEV NAME(LOC) 4E.2; GLUCOSE,POINT OF CARE 98 MG/DL (70-110)
[2023-08-28 06:52] LABS: ANION GAP 9 mmol/L (8-16); CARBON DIOXIDE 27 mmol/L (22-29); CHLORIDE 99 mmol/L (98-107); CREATININE 0.85 mg/dL (0.60-1.30); GLOMERULAR FILTR. RATE CALC > 60 mL/min (>60); GLUCOSE,RANDOM 99 mg/dL (70-110); POTASSIUM 3.7 mmol/L (3.5-5.1); SODIUM SERUM 135 mmol/L (136-145); UREA NITROGEN, BLOOD 17 mg/dL (7-18); VANCOMYCIN,RANDOM 16.5 mcg/mL (25.0-50.0)
[2023-08-28 07:31] VITALS: BP 93/58; PULSE 69; RESP 18; TEMP 98.7
[2023-08-28] MEDS: OXYGEN THERAPY IH SCH (08:00)
[2023-08-28] MEDS: VANCOMYCIN 1GM/WATER(PEG/NADA) 200 ML IV SCH ×2 (08:17→19:59)
[2023-08-28] MEDS: INDOMETHACIN 25 MG CAPSULE PO PRN (08:18)
[2023-08-28] MEDS: ENOXAPARIN SODIUM 80 MG/0.8 ML PF SYRINGE SQ SCH ×2 (08:18→20:09)
[2023-08-28] MEDS: DOCUSATE SODIUM 100 MG CAPSULE PO SCH ×2 (08:18→20:09)
[2023-08-28] MEDS: FAMOTIDINE 20 MG TABLET PO SCH (08:18)
[2023-08-28] MEDS: ALLOPURINOL 100 MG TABLET PO SCH ×2 (11:47→20:09)
[2023-08-28 11:57] VITALS: BP 113/63; PULSE 74; RESP 18; TEMP 98.5
[2023-08-28 12:26] LABS: GLUCOMETER DEV NAME(LOC) 6N.2B; GLUCOSE,POINT OF CARE 131 MG/DL (70-110)
[2023-08-28 15:23] VITALS: BP 101/60; PULSE 66; RESP 18; TEMP 99.1
[2023-08-28] MEDS: CefTRIAXone 1 GM/DEXTROSE 50 ML IV SCH (16:55)
[2023-08-28 18:06] LABS: GLUCOMETER DEV NAME(LOC) 6N.2B; GLUCOSE,POINT OF CARE 114 MG/DL (70-110)
[2023-08-28 19:09] VITALS: BP 106/59; PULSE 71; RESP 18; TEMP 98.8
[2023-08-28] MEDS: INSULIN LISPRO 100 UNITS/ML SQ PRN (20:27)
[2023-08-28 20:47] VITALS: BP 92/63; PULSE 65; RESP 18; TEMP 99.4
[2023-08-29 01:41] LABS: GLUCOMETER DEV NAME(LOC) 6S.2; GLUCOSE,POINT OF CARE 144 MG/DL (70-110)
[2023-08-29 04:41] VITALS: BP 107/62; PULSE 69; RESP 18; TEMP 99.1
[2023-08-29] MEDS: HYDROCODONE/ACETAMINOPHEN 5-325 MG TABLET PO PRN ×3 (05:44→20:21)
[2023-08-29 07:02] LABS: BASOPHILS % (AUTO) 0.9 % (0.0-2.0); HEMATOCRIT 21.6 % (41-53); HEMOGLOBIN 7.3 g/dL (13.5-17.5); LYMPHOCYTES # (AUTO) 0.8 K/uL (1.0-4.8); MEAN CORPUSCULAR HEMOGLOBIN 28.2 pg (26.0-34.0); MEAN CORPUSCULAR HGB CONC 33.8 G/dL (31.0-37.0); MEAN CORPUSCULAR VOLUME 84 fL (80-100); MONOCYTES # (AUTO) 0.6 K/uL (0.1-1.0); MONOCYTES % (AUTO) 10.3 % (2.0-9.0); NEUTROPHILS # (AUTO) 4.2 K/uL (1.8-7.7); NEUTROPHILS % (AUTO) 73.8 % (40.0-70.0); PLATELET COUNT (AUTO) 372 K/uL (150-450); RED BLOOD CELL COUNT(AUTO) 2.58 MIL/uL (4.50-5.90); RED CELL DISTRIBUTION WIDTH 15.2 % (11.5-14.5); WHITE BLOOD COUNT (AUTO) 5.7 K/uL (4.5-11.0)
[2023-08-29] MEDS: VANCOMYCIN 1GM/WATER(PEG/NADA) 200 ML IV SCH ×2 (08:21→20:21)
[2023-08-29] MEDS: ALLOPURINOL 100 MG TABLET PO SCH ×2 (08:22→20:22)
[2023-08-29] MEDS: DOCUSATE SODIUM 100 MG CAPSULE PO SCH ×2 (08:22→20:22)
[2023-08-29] MEDS: FAMOTIDINE 20 MG TABLET PO SCH (08:22)
[2023-08-29] MEDS: ENOXAPARIN SODIUM 80 MG/0.8 ML PF SYRINGE SQ SCH ×2 (08:22→20:24)
[2023-08-29 08:46] LABS: GLUCOMETER DEV NAME(LOC) 6S.2; GLUCOSE,POINT OF CARE 96 MG/DL (70-110)
[2023-08-29 10:18] VITALS: BP 93/50; PULSE 67; RESP 18; TEMP 98.4
[2023-08-29] MEDS: CefTRIAXone 1 GM/DEXTROSE 50 ML IV SCH (16:45)
[2023-08-29 20:16] LABS: GLUCOMETER DEV NAME(LOC) 6N.2B; GLUCOSE,POINT OF CARE 114 MG/DL (70-110)
[2023-08-29 20:16] LABS: GLUCOMETER DEV NAME(LOC) 6N.2B; GLUCOSE,POINT OF CARE 119 MG/DL (70-110)
[2023-08-29 20:44] VITALS: BP 103/68; PULSE 61; RESP 18; TEMP 98
[2023-08-30 01:01] LABS: GLUCOMETER DEV NAME(LOC) 6N.2B; GLUCOSE,POINT OF CARE 133 MG/DL (70-110)
[2023-08-30 03:33] VITALS: BP 117/66; PULSE 77; RESP 19; TEMP 98.2
[2023-08-30 07:12] LABS: BASOPHILS % (AUTO) 0.9 % (0.0-2.0); EOSINOPHILS % (AUTO) 1.2 % (1.0-6.0); HEMOGLOBIN 7.3 g/dL (13.5-17.5); LYMPHOCYTES # (AUTO) 1.1 K/uL (1.0-4.8); LYMPHOCYTES % (AUTO) 21.1 % (22.0-44.0); MEAN CORPUSCULAR HEMOGLOBIN 27.9 pg (26.0-34.0); MEAN CORPUSCULAR HGB CONC 33.2 G/dL (31.0-37.0); MEAN CORPUSCULAR VOLUME 84 fL (80-100); MONOCYTES # (AUTO) 0.5 K/uL (0.1-1.0); MONOCYTES % (AUTO) 10.9 % (2.0-9.0); NEUTROPHILS # (AUTO) 3.3 K/uL (1.8-7.7); NEUTROPHILS % (AUTO) 65.9 % (40.0-70.0); PLATELET COUNT (AUTO) 385 K/uL (150-450); RED BLOOD CELL COUNT(AUTO) 2.62 MIL/uL (4.50-5.90); RED CELL DISTRIBUTION WIDTH 15.4 % (11.5-14.5)
[2023-08-30 07:30] LABS: GLUCOMETER DEV NAME(LOC) 6N.2B; GLUCOSE,POINT OF CARE 96 MG/DL (70-110)
[2023-08-30 07:37] LABS: ANION GAP 12 mmol/L (8-16); CARBON DIOXIDE 25 mmol/L (22-29); CHLORIDE 100 mmol/L (98-107); CREATININE 0.85 mg/dL (0.60-1.30); GLOMERULAR FILTR. RATE CALC > 60 mL/min (>60); GLUCOSE,RANDOM 95 mg/dL (70-110); POTASSIUM 3.8 mmol/L (3.5-5.1); SODIUM SERUM 137 mmol/L (136-145); UREA NITROGEN, BLOOD 14 mg/dL (7-18)
[2023-08-30] MEDS: VANCOMYCIN 1GM/WATER(PEG/NADA) 200 ML IV SCH ×2 (08:11→20:06)
[2023-08-30] MEDS: FAMOTIDINE 20 MG TABLET PO SCH (08:12)
[2023-08-30] MEDS: ALLOPURINOL 100 MG TABLET PO SCH ×2 (08:12→20:06)
[2023-08-30] MEDS: DOCUSATE SODIUM 100 MG CAPSULE PO SCH ×2 (08:12→20:09)
[2023-08-30] MEDS: ENOXAPARIN SODIUM 80 MG/0.8 ML PF SYRINGE SQ SCH ×2 (08:12→20:09)
[2023-08-30] MEDS: HYDROCODONE/ACETAMINOPHEN 5-325 MG TABLET PO PRN ×2 (08:22→17:02)
[2023-08-30 08:33] VITALS: BP 92/60; PULSE 62; RESP 20; TEMP 99.2
[2023-08-30] MEDS: INSULIN LISPRO 100 UNITS/ML SQ PRN (11:36)
[2023-08-30 12:21] LABS: GLUCOMETER DEV NAME(LOC) 6N.2B; GLUCOSE,POINT OF CARE 162 MG/DL (70-110)
[2023-08-30] MEDS: CefTRIAXone 1 GM/DEXTROSE 50 ML IV SCH (16:37)
[2023-08-30] MEDS: FERROUS SULFATE 325 MG EC TABLET PO SCH (16:37)
[2023-08-30 18:56] LABS: GLUCOMETER DEV NAME(LOC) 6N.2B; GLUCOSE,POINT OF CARE 99 MG/DL (70-110)
[2023-08-30] MEDS: OXYGEN THERAPY IH SCH (20:00)
[2023-08-30 20:04] VITALS: BP 105/67; PULSE 65; RESP 18; TEMP 98
[2023-08-30] MEDS: MORPHINE SULFATE 2 MG/ML SYRINGE IVP PRN (20:10)
[2023-08-30] MEDS ORDERED: SODIUM CHLORIDE 0.9% 500 ML IV ONE (20:15)
[2023-08-30 21:51] LABS: GLUCOMETER DEV NAME(LOC) 6N.2B; GLUCOSE,POINT OF CARE 108 MG/DL (70-110)
[2023-08-31 05:16] VITALS: BP 97/63; PULSE 65; RESP 18; TEMP 98.2
[2023-08-31 07:31] LABS: GLUCOMETER DEV NAME(LOC) 4E.2; GLUCOSE,POINT OF CARE 89 MG/DL (70-110)
[2023-08-31] MEDS: VANCOMYCIN 1GM/WATER(PEG/NADA) 200 ML IV SCH (07:52)
[2023-08-31] MEDS: FERROUS SULFATE 325 MG EC TABLET PO SCH ×2 (08:09→18:00)
[2023-08-31] MEDS: FAMOTIDINE 20 MG TABLET PO SCH (08:10)
[2023-08-31] MEDS: ENOXAPARIN SODIUM 80 MG/0.8 ML PF SYRINGE SQ SCH ×2 (08:10→20:25)
[2023-08-31] MEDS: ALLOPURINOL 100 MG TABLET PO SCH ×2 (08:10→20:26)
[2023-08-31] MEDS: DOCUSATE SODIUM 100 MG CAPSULE PO SCH ×2 (08:10→20:26)
[2023-08-31] MEDS: MULTIVITAMINS WITH MINERALS, THERAPEUTIC TABLET PO SCH (08:10)
[2023-08-31 08:30] VITALS: BP 102/66; PULSE 68; RESP 19; TEMP 98
[2023-08-31] MEDS ORDERED: HYDROCODONE/ACETAMINOPHEN 5-325 MG TABLET PO PRN ×2 (10:30→14:30)
[2023-08-31 16:42] VITALS: BP 97/63; PULSE 70; RESP 19; TEMP 98.1
[2023-08-31] MEDS: OXYGEN THERAPY IH SCH (20:00)
[2023-08-31 20:51] LABS: GLUCOMETER DEV NAME(LOC) 6S.2; GLUCOSE,POINT OF CARE 132 MG/DL (70-110)
[2023-08-31 21:14] VITALS: BP 105/69; PULSE 71; RESP 19; TEMP 98.4
[2023-09-01 05:09] VITALS: BP 104/63; PULSE 71; RESP 19; TEMP 98.5
[2023-09-01 06:06] LABS: GLUCOMETER DEV NAME(LOC) 4E.2; GLUCOSE,POINT OF CARE 99 MG/DL (70-110)
[2023-09-01 07:41] VITALS: BP 106/54; PULSE 63; RESP 20; TEMP 98.1
[2023-09-01] MEDS: FERROUS SULFATE 325 MG EC TABLET PO SCH (08:29)
[2023-09-01] MEDS: MULTIVITAMINS WITH MINERALS, THERAPEUTIC TABLET PO SCH (08:29)
[2023-09-01] MEDS: OXYGEN THERAPY IH SCH (08:29)
[2023-09-01] MEDS: FAMOTIDINE 20 MG TABLET PO SCH (08:29)
[2023-09-01] MEDS: DOCUSATE SODIUM 100 MG CAPSULE PO SCH (08:29)
[2023-09-01] MEDS: ALLOPURINOL 100 MG TABLET PO SCH (09:53)
[2023-09-01] MEDS: ENOXAPARIN SODIUM 80 MG/0.8 ML PF SYRINGE SQ SCH (09:53)
[2023-09-01] MEDS ORDERED: ALLO-97 PO (13:31)
[2023-09-01] MEDS ORDERED: APIX5TAB PO (13:31)
[2023-09-01] MEDS ORDERED: DOCU-385 PO (13:32)
[2023-09-01] MEDS ORDERED: FERR325T27 PO (13:33)
[2023-09-01] MEDS ORDERED: FAMO20 PO (13:33)
[2023-09-01] MEDS ORDERED: MULT-1203 PO (13:35)
[2023-09-01] MEDS ORDERED: ACET-2247 PO (13:37)
[2023-09-01] MEDS ORDERED: BISA10SU11 PR (13:38)
[2023-09-01] MEDS ORDERED: D5050I IVP (13:43)
[2023-09-01] MEDS ORDERED: HYDR-4723 PO (13:44)
[2023-09-01] MEDS ORDERED: INDO-16 PO (13:45)
[2023-09-01] MEDS ORDERED: INSU100V SQ (13:46)
[2023-09-01] MEDS ORDERED: MAGN-169 PO (13:47)
[2023-09-01 15:21] LABS: GLUCOMETER DEV NAME(LOC) 4E.2; GLUCOSE,POINT OF CARE 108 MG/DL (70-110)
[2023-09-01] MEDS ORDERED: APIXABAN 5 MG TABLET PO SCH (21:00)
== END 2023-09-01 16:07 | DRG 501 ==
LOC: EMS 15:04 → 6S 17:54
PROVIDERS: ADMIT Internal Medicine; ATTEND Internal Medicine
PROC: 0RBM0ZZ Excision of Left Elbow Joint, Open Approach (ICD-10-PCS; 2023-08-18)
PROC: 01N40ZZ Release Ulnar Nerve, Open Approach (ICD-10-PCS; 2023-08-18)
PROC: 0MB40ZZ Excision of Left Elbow Bursa and Ligament, Open Approach (ICD-10-PCS; principal; 2023-08-18 13:50)
PROC: 0S9C3ZX Drainage of Right Knee Joint, Percutaneous Approach, Diagnostic (ICD-10-PCS; 2023-08-27)
DX: M71.122 Other infective bursitis, left elbow (principal); I82.402 Acute embolism and thrombosis of unspecified deep veins of left lower extremity; R74.01 Elevation of levels of liver transaminase levels; D64.9 Anemia, unspecified; D75.839 Thrombocytosis, unspecified; J98.4 Other disorders of lung; M1A.9XX1 Chronic gout, unspecified, with tophus (tophi); I95.9 Hypotension, unspecified; E78.00 Pure hypercholesterolemia, unspecified; F17.290 Nicotine dependence, other tobacco product, uncomplicated; G58.8 Other specified mononeuropathies; M71.121 Other infective bursitis, right elbow; Z20.822 Contact with and (suspected) exposure to COVID-19; D72.829 Elevated white blood cell count, unspecified; M25.461 Effusion, right knee; M11.9 Crystal arthropathy, unspecified; Z79.84 Long term (current) use of oral hypoglycemic drugs; Z79.899 Other long term (current) drug therapy; Z86.718 Personal history of other venous thrombosis and embolism
CPT/HCPCS: 71045; 71260; 73201; 73700; 73723; 76705; 80048; 80053; 80202; 80307; 81001; 81003; 82550; 82962; 83605; 83690; 83880; 84145; 84484; 84550; 85025; 85379; 85651; 86140; 87040; 87070; 87075; 87205; 88305; 89051; 89060; 93005; 93970; 97167; 97530; 99285; J0690; J0696; J1100; J1650; J2270; J2405; J2704; J2765; J3370; J3490; J7030; J7040; J7050; J7060; J7120; Q9967; 36415-L1; 36415-TC; Z7610